=== PATIENT | female | born 1995 | race Caucasian/White ===

== ENCOUNTER 2020-03-18 04:44 | Emergency (ER) | payer SELFPAY ==
[~2020-03-18] VITALS: Ht 154.9 cm; Wt 45.4 kg
--- NOTE | 2020-03-18 04:50 | NUR ---
ED Nurse Note: Patient walked into the ED with c/o lower abdominal pain. Per patient pain is sharp and radiates to the back; 7/10, accompanied by nausea started last night. Vaginal bleeding present only during urination. Patient denies SOB/, fever and chills. Patient denies injury or trauma. PAtient is AAOX4 and ambulatory
--- NOTE | 2020-03-18 04:55 | NUR ---
ED Nurse Note: ERMD at bedside
--- NOTE | 2020-03-18 05:00 | NUR ---
ED Nurse Note: Blood and urine sent to lab
[2020-03-18] MEDS ORDERED: Ketorolac 30mg Inj IV ONE (05:15)
[2020-03-18] MEDS ORDERED: Morphine Sulfate 4mg/ml Inj (IV USE ONLY) IVP ONE (05:15)
[2020-03-18 05:22] LABS: BASOPHILS % (AUTO) 1.3 % (0.0-2.0); HEMATOCRIT 41.1 % (37.0-47.0); HEMOGLOBIN 14.1 G/DL (12.0-16.0); LYMPHOCYTES % (AUTO) 49.6 % (20.0-45.0); MEAN CORPUSCULAR VOLUME 87 FL (80-99); MONOCYTES % (AUTO) 7.1 % (1.0-10.0); PLATELET COUNT 220 K/UL (150-450); RED BLOOD COUNT 4.73 M/UL (4.20-5.40); WHITE BLOOD COUNT 9.8 K/UL (4.8-10.8)
[2020-03-18 05:25] VITALS: BP 128/79
--- NOTE | 2020-03-18 05:27 | Emergency Room Report ---
History of Present Illness General Chief Complaint: Abdominal Pain Source: Patient Present Illness HPI Is a 24-year-old female with no past medical history she presents with chief complaint of abdominal pain and flank pain. Onset was acute and recur couple hours ago. Woke her up. Pain is the left flank going to her front. She has nausea and vomiting. No diarrhea. Now she noticed that she has hematuria. Pain is 10 out of 10. Nothing made it better. Nothing made it worse. Denies any trauma. Denies any fever or chills. Allergies: Coded Allergies: No Known Allergies (Unverified , 03/18/20) COVID-19 Screening Contact w/high risk pt: No Experienced COVID-19 symptoms?: No COVID-19 Testing performed QUALITY TECHNICIAN: No Patient History Past Medical History: see triage record, old chart reviewed Past Surgical History: none Pertinent Family History: none Social History: Denies: smoking Last Menstrual Period: 3 wks ago Now: No : 0 Para: 0 Immunizations: other Reviewed Nursing Documentation: PMH: Agreed; PSxH: Agreed Nursing Documentation-PMH Past Medical History: No Stated History Review of Systems Eye: Denies: eye pain, blurred vision ENT: Denies: ear pain, nose congestion, throat swelling Respiratory: Denies: cough, shortness of breath Cardiovascular: Denies: chest pain, palpitations Gastrointestinal: Reports: abdominal pain, nausea; Denies: diarrhea, vomiting Musculoskeletal: Denies: back pain, joint pain Skin: Denies: rash Neurological: Denies: headache, numbness Endocrine: Denies: increased thirst, increased urine Hematologic/Lymphatic: Denies: easy bruising All Other Systems: negative except mentioned in HPI Physical Exam Vital Signs Date Time Temp Pulse Resp B/P (MAP) Pulse Ox O2 Delivery O2 Flow Rate FiO2 03/18/20 04:49 98.1 62 18 128/79 (95) 99 Room Air Vitals normal Sp02 EP Interpretation: reviewed, normal General Appearance: well appearing, no apparent distress, alert Head: normocephalic, atraumatic Eyes: bilateral eye PERRL, bilateral eye EOMI ENT: hearing grossly normal, normal pharynx Neck: full range of motion, supple, no meningismus Respiratory: chest non-tender, lungs clear, normal breath sounds Cardiovascular #1: regular rate, rhythm, no murmur Gastrointestinal: normal bowel sounds, non tender, no mass, no organomegaly, no bruit, non-distended Genitourinary: CVA tenderness (L) Musculoskeletal: back normal, normal range of motion, gait/station normal Psychiatric: mood/affect normal Medical Decision Making Diagnostic Impression: Primary Impression: Left ureteral calculus Additional Impression: Renal colic on left side ER Course Patient with left flank pain and hematuria. CT scan show ureteral stone. Patient pain is well controlled. Will discharge home with outpatient urology referral. CT/MRI/US Diagnostic Results CT/MRI/US Diagnostic Results : Imaging Test Ordered: CT abdomen and pelvis Impression Read by radiologist. 2.4 mm left ureteral stone. Last Vital Signs Date Time Temp Pulse Resp B/P (MAP) Pulse Ox O2 Delivery O2 Flow Rate FiO2 03/18/20 04:49 98.1 62 18 128/79 (95) 99 Room Air Status: improved Disposition: HOME, SELF-CARE Condition: Stable Scripts Ibuprofen (Ibuprofen) 400 Mg Tablet 400 MG PO EVERY 8 HOURS, #30 TAB Prov: Yadiel Sparrow MD 03/18/20 Cephalexin* (KEFLEX*) 500 Mg Capsule 500 MG ORAL EVERY 6 HOURS, #28 CAP Prov: Yadiel Sparrow MD 03/18/20 Hydrocodone Bit/Acetaminophen 5-325* (NORCO 5-325 TABLET*) 1 Each Tablet 1 TAB ORAL Q6H PRN for FOR PAIN, #12 TAB 0 Refills Prov: Yadiel Sparrow MD 03/18/20 Referrals: NOT CHOSEN IPA/,REFERRING (PCP) Goyo Huddleston MD Mar 18, 2020 05:27
[2020-03-18 05:30] LABS: ANION GAP 11 mmol/L (5-15); BLOOD UREA NITROGEN 9 mg/dL (7-18); CALCIUM 8.9 MG/DL (8.5-10.1); CARBON DIOXIDE 27 MMOL/L (21-32); CHLORIDE 103 MMOL/L (98-107); POTASSIUM 3.1 MMOL/L (3.5-5.1); SODIUM 141 MMOL/L (136-145)
[2020-03-18 05:34] LABS: ALANINE AMINOTRANSFERASE 11 U/L (12-78); ALBUMIN 4.3 G/DL (3.4-5.0); ALBUMIN/GLOBULIN RATIO 1.8 (1.0-2.7); ALKALINE PHOSPHATASE 51 U/L (46-116); ASPARTATE AMINO TRANSFERASE 12 U/L (15-37); BILIRUBIN,TOTAL 0.8 MG/DL (0.2-1.0)
--- NOTE | 2020-03-18 05:50 | NUR ---
ED Nurse Note: Patient CT done
--- NOTE | 2020-03-18 06:00 | NUR ---
ED Nurse Note: Patient is more comfortable as of the moment, pain is 2/10. VSS as documented
[2020-03-18 06:02] VITALS: BP 118/85
[2020-03-18 06:08] LABS: APPEARANCE,URINE CLOUDY; BILIRUBIN, URINE NEGATIVE (NEGATIVE); COLOR,URINE RED; GLUCOSE, URINE (UA) NEGATIVE (NEGATIVE); KETONES,URINE 3+ (NEGATIVE); LEUKOCYTE ESTERASE ,URINE NEGATIVE (NEGATIVE); NITRITE,URINE NEGATIVE (NEGATIVE); PH,URINE 6.5 (4.5-8.0); PROTEIN,URINE 4+ (NEGATIVE); UROBILINOGEN,URINE NORMAL MG/DL (0.0-1.0)
--- NOTE | 2020-03-18 06:23 | Diagnostic Imaging Report ---
EXAM: CT Abdomen and Pelvis Without Intravenous Contrast CLINICAL HISTORY: ABD PAIN TECHNIQUE: Axial computed tomography images of the abdomen and pelvis without intravenous contrast. CTDI is 2.90 mGy and DLP is 145.90 mGy-cm. One or more of the following dose reduction techniques were used: automated exposure control, adjustment of the mA and/or kV according to patient size, use of iterative reconstruction technique. Coronal and sagittal reformatted images were created and reviewed. COMPARISON: No relevant prior studies available. FINDINGS: Lung bases: Unremarkable. No mass. No consolidation. ABDOMEN: Liver: Unremarkable. Gallbladder and bile ducts: Unremarkable. No calcified stones. No ductal dilation. Pancreas: Unremarkable. No ductal dilation. Spleen: Unremarkable. No splenomegaly. Adrenals: Unremarkable. No mass. Kidneys and ureters: Mild left hydronephrosis with a 2.4 mm mid ureteral calculus. Additional left intrarenal calculi are seen measuring up to 2.5 mm. Stomach and bowel: Unremarkable. No obstruction. No mucosal thickening. PELVIS: Appendix: No findings to suggest acute appendicitis. Bladder: Bladder wall thickening which may reflect a degree of cystitis. No stones. Reproductive: Unremarkable as visualized. ABDOMEN and PELVIS: Intraperitoneal space: Unremarkable. No free air. No significant fluid collection. Bones/joints: No acute fracture. No dislocation. Soft tissues: Unremarkable. Vasculature: Unremarkable. No abdominal aortic aneurysm. Lymph nodes: Unremarkable. No enlarged lymph nodes. IMPRESSION: 1. Mild left hydronephrosis with a 2.4 mm mid ureteral calculus. Additional left intrarenal calculi are seen measuring up to 2.5 mm. 2. Bladder wall thickening which may reflect a degree of cystitis.
--- NOTE | 2020-03-18 07:10 | NUR ---
HAND-OFF: Report given to VIANNEY PERAZA.
[2020-03-18] MEDS ORDERED: IBUPROFEN400 M1 PO (07:29)
[2020-03-18] MEDS ORDERED: CEPHALEXIN500 MG ORAL (07:29)
[2020-03-18] MEDS ORDERED: NORCO 5-325 TA1 EAC1 ORAL (07:29)
--- NOTE | 2020-03-18 07:47 | NUR ---
ER DISCHARGE NOTE: Patient is cleared to be discharged per ERMD, pt is aox4, on room air, with stable vital signs. pt was given dc and prescription instructions, pt was able to verbalize understanding, pt id band and iv site removed without complications. pt is able to ambulate with steady gait. pt took all belongings. Pt educated on prescriptions.
[2020-03-18 07:48] VITALS: BP 124/82
== END 2020-03-18 07:49 | disposition home or self-care (01) ==
LOC: EMR 05:08
DX: N20.1 Calculus of ureter (principal); N23 Unspecified renal colic
CPT/HCPCS: 36415; 74176; 80053; 81001; 81025; 83690; 85025; 96361; 96374; 96375; 99284; J1885; J2270; J2405; J7030